=== PATIENT | female | born 1940 | race Caucasian/White ===

== ENCOUNTER 2019-11-06 05:36 | Day surgery (SDC) | payer OTHER ==
[~2019-11-06 05:36] MED LIST: CYMBALTA60 MG PO; LEVOTH PO; SIMVASTATIN20 MG PO
== END 2019-11-06 11:25 | disposition home or self-care (01) ==
LOC: CIR.AMB 05:36
PROVIDERS: ATTEND Orthopaedic Surgery
DX: M75.122 Complete rotator cuff tear or rupture of left shoulder, not specified as traumatic (principal); M75.22 Bicipital tendinitis, left shoulder